=== PATIENT | male | born 1980 | race Two or more races ===

== ENCOUNTER 2019-05-01 04:18 | Emergency (ER) | payer OTHER ==
[~2019-05-01] VITALS: Ht 175.3 cm; Wt 99.8 kg
== END 2019-05-01 06:30 | disposition home or self-care (01) ==
LOC: ER 04:18
DX: S40.011A Contusion of right shoulder, initial encounter (principal); W18.39XA Other fall on same level, initial encounter; Y93.89 Activity, other specified; Y92.89 Other specified places as the place of occurrence of the external cause; Y99.8 Other external cause status